=== PATIENT | female | born 1925 | race Hispanic/Latino ===

== ENCOUNTER 2016-02-24 12:48 | Outpatient (CLI) | payer MEDICARE ==
[2016-02-24 16:09] LABS: Anion Gap 14 mmol/L (10-20); BUN (Urea Nitrogen) 53 mg/dL (9.8-20.1); Calc. Creatinine Clearance 0 mL/min (70-130); Calcium 8.4 mg/dL (7.8-10.44); Carbon Dioxide 26 mmol/L (23-31); Chloride 103 mmol/L (98-107); Estimated GFR-MDRD 10
== END 2016-02-24 12:49 | disposition home or self-care (01) ==
LOC: NAVSJIPCSP 12:48
PROVIDERS: ATTEND Internal Medicine Nephrology
DX: N18.3 Chronic kidney disease, stage 3 (moderate) (principal)
CPT/HCPCS: 36415; 80048

== ENCOUNTER 2016-03-15 08:29 | Outpatient (CLI) | payer MEDICARE | END 2016-03-15 08:30 | LOC: NAVSJIPCSP 08:29 | PROVIDERS: ATTEND Internal Medicine | DX: R30.0 Dysuria (principal) | CPT/HCPCS: 87086 ==

== ENCOUNTER 2016-03-15 16:05 | Emergency (ER) | payer MEDICARE ==
[2016-03-15 16:41] LABS: Blood, Urine Large (Negative); Glucose, Urine (Dipstick) Negative (Negative); Ketone, Urine Trace mg/dL (Negative); Nitrite Negative (Negative); Protein, Urine (Dipstick) > or equal to 300 mg/dL (Neg-Trace); Urobilinogen 0.2 mg/dL (0.2-1.0)
[2016-03-15 16:43] LABS: Bilirubin Negative (Negative)
[2016-03-15 16:50] LABS: Bacteria/HPF None Seen HPF (None Seen); RBC/HPF GREATER THAN 50-TNTC HPF (0-3); Squamous Epithelial 0-3 HPF (0-3); WBC/HPF 0-3 HPF (0-3)
[2016-03-15 16:59] LABS: ALT (SGPT) 23 U/L (0-55); AST (SGOT) 47 U/L (5-34); Alkaline Phosphatase 66 U/L (40-150); Anion Gap 15 mmol/L (10-20); BUN (Urea Nitrogen) 16 mg/dL (9.8-20.1); Bilirubin, Total 0.7 mg/dL (0.2-1.2); Calc. Creatinine Clearance 0 mL/min (70-130); Calcium 8.4 mg/dL (7.8-10.44); Carbon Dioxide 28 mmol/L (23-31); Chloride 97 mmol/L (98-107); Estimated GFR-MDRD 14; Globulin 3.4 g/dL (2.4-3.5); Protein, Total 6.8 g/dL (5.8-8.1)
[2016-03-15] MEDS ORDERED: Lorazepam 2 MG/ML VIAL ONE (16:59)
[2016-03-15 17:33] LABS: #Eosinphils 0.1 thou/uL (0.0-0.7); #Lymphocytes 0.8 thou/uL (1.20-3.40); #Monocytes 0.8 thou/uL (0.11-0.59); #Neutrophils 6.7 thou/uL (1.40-6.50); %Basophils 0.4 % (0.0-1.0); %Eosinophils 0.9 % (0.0-10.0); %Lymphocytes 9.2 % (21.0-51.0); %Monocytes 9.5 % (0.0-10.0); Hematocrit 28.6 % (36.0-47.0); Hypochromia SLIGHT = 6-15 cells (100X) (0-5/hpf); Macrocytosis SLIGHT = 6-15 cells (100X) (0-5/hpf); Mean Platelet Volume 8.3 fL (7.4-10.4); Red Blood Cell (RBC) Count 2.87 mill/uL (4.20-5.40); White Blood Cell (WBC) Count 8.3 thou/uL (4.8-10.8)
--- NOTE | 2016-03-15 17:52 | CT ---
CT OF BRAIN PERFORMED WITHOUT CONTRAST ENHANCEMENT: HISTORY: Trembling, shaking, and weakness. History of an aneurysm in 2009. COMPARISON: 08/09/2013 study. FINDINGS: There is generalized ventricular and sulcal prominence with decreased attenuation of the periventric ular white matter consistent with some chronic ischemic white matter change. Once again, an aneurys m clip is seen along the right middle cranial fossa. This actually may represent embolic coil. It is stable as compared to the prior exam. IMPRESSION: 1. Atrophy and chronic white matter change. 2. Prominent artifact along the medial aspect of the right middle cranial fossa related to placement of an embolic coil presumably related to aneurysm. POS: LUIS FERNANDO
--- NOTE | 2016-03-15 18:34 | ERRECORD ---
[facility] EMERGENCY RECORD HPI GENERAL (17:09 KNGU) CHIEF COMPLAINT: Patient presents for evaluation of shaking trembling weak. HISTORIAN: History provided by patient, History provided by patient's family, 89 yo F ESRD recently started on HD / with shaking trembling symptoms yesterday / feel weak has no other symptoms. Patient had HD earlier today / said seems worse after HD / no current headache/ nausea vomiting / dizziness no chest pain no sob. MECHANISM OF INJURY: Unknown mechanism. LOCATION: Symptoms are generalized. QUALITY: Unable to describe the quality of the pain. SEVERITY: Maximum severity of symptoms mild, Currently there are no symptoms. TIME COURSE: Gradual onset of symptoms, are intermittent. ASSOCIATED WITH: No associated symptoms. EXACERBATED BY: Patient's condition exacerbated by nothing. RELIEVED BY: Nothing tried for relief. ROS (17:10 KNGU) CONSTITUTIONAL: Negative constitutional review of systems, Historian denies chills, denies fever. CARDIOVASCULAR: Negative cardiovascular review of systems, Historian denies chest pain, denies palpitations. RESPIRATORY: Negative respiratory review of systems, Historian denies cough, denies shortness of breath. GI: Negative gastrointestinal review of systems, Historian denies abdominal pain, denies constipation, denies diarrhea, denies nausea, denies vomiting. GENITOURINARY FEMALE: Negative genitourinary review of systems, Historian denies dysuria, denies frequency. SKIN: Negative skin review of systems, Historian denies rash, denies skin changes. NEUROLOGIC: Historian denies confusion, denies dizziness, denies focal weakness, denies headache, denies lethargy, denies mental status changes, denies paresthesias, denies sensory changes, denies speech changes, reports tremors, denies vertigo, denies headache. HEMO/LYMPHATIC: Normal hematologic/lymphatic system review, Historian denies abnormal blood clotting. PAST MEDICAL HISTORY (16:16 MSPE) MEDICAL HISTORY: Notes: Started Dialysis this month; T S, Past medical history includes cardiac history, congestive heart failure, myocardial infarction, arrhythmia, atrial fibrillation, Treated with a pacemaker, Treated with stent placement, Number of stents: 2, Past medical history includes neurological disease, aneurysm, Flu vaccine up to date, Tetanus immunization up to date, Pneumococcal vaccine up to date, Notes: prolapsed utreus, of &a-1R&a+25V*p+0X*g0126I*c202B*c15G*c2P*p-0X&a-25V&a+1R Name: Kayleigh Novak : 1925 F89 MedRec: [id number] AcctNum: [id number] Prepared: MonMar 15, 2016 18:53 by Interface Page 1 of 4 pMD [facility] EMERGENCY RECORD hyperlipidemia, high cholesterol, currently being treated, includes history of hypertension, which has been treated, renal disease, insufficiency. FEMALE SURGICAL HISTORY: AV fistula Left arm, CATARACT SX, coiling for the aneurysm. PSYCHIATRIC HISTORY: No previous psychiatric history. SOCIAL HISTORY: Patient denies alcohol use, Patient denies drug use, Patient has no smoking history. KNOWN ALLERGIES Odsiqih-Pmn-Daf Reductase Inhibitors Sulfa (Sulfonamide Antibiotics) CURRENT MEDICATIONS (16:13 MSPE) carvedilol: TABLET : Strength - 6.25 mg : ORAL Patient Dose: 2 tab(s) Oral 2 times a day. aspirin: TABLET : Strength - 81 mg : ORAL Patient Dose: 1 tab(s) Oral once a day (in the morning). Zetia: TABLET : Strength - 10 mg : ORAL Patient Dose: 10 mg Oral once a day. amiodarone: TABLET : Strength - 200 mg : ORAL Patient Dose: 1 tab(s) Oral once a day. Claritin: TABLET : Strength - 10 mg : ORAL Patient Dose: 1 tab(s) Oral once a day. VITAL SIGNS VITAL SIGNS: Pain: 0, Time: 03/15/2016 16:11. (16:11 MSPE) BP: 148/89, Pulse: 97, Resp: 20, Temp: 99.8 (Oral), O2 sat: 97 on Room Air, Time: 03/15/2016 16:13. (16:13 MSPE) BP: 119/66, Pulse: 62, Resp: 24, O2 sat: 96 on Room Air, Time: 03/15/2016 16:40. (16:40 MSPE) BP: 122/59, Pulse: 61, Resp: 18, Pain: 0, O2 sat: 96 on Room Air, Time: 03/15/2016 17:03. (17:03 MSPE) BP: 157/61, Pulse: 74, Resp: 17, Pain: 0, O2 sat: 97 on RA, Time: 03/15/2016 17:34. (17:34 MSPE) BP: 137/54, Pulse: 60, Resp: 17, Pain: 0, O2 sat: 95, Time: 03/15/2016 17:58. (17:58 JPAR) PHYSICAL EXAM CONSTITUTIONAL: Vital signs reviewed, Patient afebrile, Pulse normal, Blood pressure normal, Respiratory rate normal, Patient appears non toxic, Patient appears pain free, Patient alert and oriented to person, place and time. (17:10 KNGU) HEAD: Head exam normal. (17:11 KNGU) EYES: Eye exam normal. (17:11 KNGU) &a-1R&a+25V*p+0X*[id number]*c202B*c15G*c2P*p-0X&a-25V&a+1R Name: Kayleigh Novak : 1925 F89 MedRec: [id number] AcctNum: [id number] Prepared: Barbara Mar 15, 2016 18:53 by Interface Page 2 of 4 pMD [facility] EMERGENCY RECORD ENT: ENT exam normal. (17:11 KNGU) NECK: Neck exam normal, Neck exam included findings of normal range of motion, Trachea midline, no meningeal signs, no cervical adenopathy, no tenderness. (17:10 KNGU) RESPIRATORY CHEST: Respiratory and chest exam normal, Respiratory exam included findings of no respiratory distress, Breath sounds clear. (17:10 KNGU) CARDIOVASCULAR: Cardiovascular assessment normal, Cardiovascular exam included findings of heart rate regular rate and rhythm, Heart sounds normal. (17:10 KNGU) ABDOMEN FEMALE: Abdominal exam included findings of abdomen nontender, Bowel sounds normal, no distension, no mass, no pulsatile masses, no peritoneal signs, no rigidity, no guarding, no rebound, Rovsing's sign absent. (17:10 KNGU) BACK: Back exam normal, Back exam included findings of normal inspection, range of motion normal, no tenderness. (17:10 KNGU) NEURO: Neuro exam findings include patient oriented to person, place and time, Speech normal, Gait normal, no focal motor deficits, no focal sensory deficits, patient with slight trembling b/l arms / but stopped when distracting with question. (17:10 KNGU) SKIN: Skin exam normal, Skin exam included findings of skin warm, dry, and normal in color, no rash. (17:10 KNGU) MEDICATION ADMINISTRATION SUMMARY Drug Name: Ativan injection, Dose Ordered: 0.5 mg, Route: IV Push, Status: Given, Time: 17:06 03/15/2016, Detailed record available in Medication Service section. DOCTOR NOTES (17:02 KNGU) TEXT: 89 yo F ESRD recently started on HD / with shaking trembling symptoms yesterday / feel weak has no other symptoms labs and ct scan no acute abnormality seen patient symptoms resolved with Ativan 0.5 mg impression : anxiety vs muscle spasm post hd to follow up with pcp as needed. PROBLEM LIST No recorded problems DIAGNOSIS (17:52 KNGU) FINAL: PRIMARY: Anxiety, ADDITIONAL: muscle spasm. PRESCRIPTION (17:53 KNGU) Ativan oral: TABLET : 0.5 mg : ORAL : Quantity: 1 Unit: tab(s) Route: ORAL Schedule: every 8 hours PRN Dispense: 12 Unit: tab(s) May substitute. Refills: No Refills . &a-1R&a+25V*p+0X*i9120G*c202B*c15G*c2P*p-0X&a-25V&a+1R Name: Kayleigh Novak : 1925 89 MedRec: [id number] AcctNum: [id number] Prepared: Barbara Mar 15, 2016 18:53 by Interface Page 3 of 4 pMD [facility] EMERGENCY RECORD NOTES: No Refills. DISPOSITION PATIENT: Disposition Type: Discharge, Disposition: *Discharge Home. (17:52 KNGU) Patient left the department. (18:17 CHERYL) Mitchell: CHERYL=AFSANEH Jha, Kamran DODGE=MD Eileen, Joellen HART=AFSANEH Painter, Coco &a-1R&a+25V*p+0X*[id number]*c202B*c15G*c2P*p-0X&a-25V&a+1R Name: Kayleigh Novak : 1925 [facility] MedRec: [id number] AcctNum: [id number] Prepared: Barbara Mar 15, 2016 18:53 by Interface Page 4 of 4 pMD MTDD
--- NOTE | 2016-03-15 18:41 | PICIS ---
[facility] EMERGENCY RECORD TRIAGE (MonMar 15, 2016 16:12 MSPE) TRIAGE NOTES: sts trembling since yesterday; saw Dr Wilson yesterday for the same. Denies Pain. (MonMar 15, 2016 16:12 MSPE) PATIENT: NAME: Kayleigh Novak, AGE: 89, GENDER: female, : [facility] 1925, TIME OF GREET: MonMar 15, 2016 16:06, PREFERRED LANGUAGE: Australian, ETHNICITY: or , ECODE BILLING MAP: [facility] ER, SSN: [id number], Zip Code: [address], KG WEIGHT: 65.77, PHONE: , , , PERSON ID: [id number], PCP: Katie. (MonMar 15, 2016 16:12 MSPE) COMPLAINT: SHAKING/TREMBLING SINCE YESTERDAY,. (MonMar 15, 2016 16:12 MSPE) ADMISSION: URGENCY: 3 Urgent, ADMISSION SOURCE: Home, TRANSPORT: CAR, BED: ER -03. (MonMar 15, 2016 16:12 MSPE) PROVIDERS: TRIAGE NURSE: Coco Painter RN. (MonMar 15, 2016 16:12 MSPE) VITAL SIGNS: Pain 0, Time 03/15/2016 16:11. (16:11 MSPE) PREVIOUS VISIT ALLERGIES: Dctatrp-Crp-Yin Reductase Inhibitors, Sulfa (Sulfonamide Antibiotics). (MonMar 15, 2016 16:12 MSPE) Zvukemw-Jvi-Hjl Reductase Inhibitors, Sulfa (Sulfonamide Antibiotics). (16:16 MSPE) KNOWN ALLERGIES Dsupibu-Lhg-Dga Reductase Inhibitors Sulfa (Sulfonamide Antibiotics) CURRENT MEDICATIONS (16:13 MSPE) carvedilol: TABLET : Strength - 6.25 mg : ORAL Patient Dose: 2 tab(s) Oral 2 times a day. aspirin: TABLET : Strength - 81 mg : ORAL Patient Dose: 1 tab(s) Oral once a day (in the morning). Zetia: TABLET : Strength - 10 mg : ORAL Patient Dose: 10 mg Oral once a day. amiodarone: TABLET : Strength - 200 mg : ORAL Patient Dose: 1 tab(s) Oral once a day. Claritin: TABLET : Strength - 10 mg : ORAL Patient Dose: 1 tab(s) Oral once a day. VITAL SIGNS VITAL SIGNS: Pain: 0, Time: 03/15/2016 16:11. (16:11 MSPE) BP: 148/89, Pulse: 97, Resp: 20, Temp: 99.8 (Oral), O2 sat: 97 on Room Air, Time: 03/15/2016 16:13. (16:13 MSPE) BP: 119/66, Pulse: 62, Resp: 24, O2 sat: 96 on Room Air, Time: 03/15/2016 16:40. (16:40 MSPE) &a-1R&a+25V*p+0X*p2039X*c202B*c15G*c2P*p-0X&a-25V&a+1R Name: Kayleigh Novak : 1925 F89 MedRec: [id number] AcctNum: [id number] Prepared: Barbara Mar 15, 2016 18:54 by Interface Page 1 of 9 pMD [facility] EMERGENCY RECORD BP: 122/59, Pulse: 61, Resp: 18, Pain: 0, O2 sat: 96 on Room Air, Time: 03/15/2016 17:03. (17:03 MSPE) BP: 157/61, Pulse: 74, Resp: 17, Pain: 0, O2 sat: 97 on RA, Time: 03/15/2016 17:34. (17:34 MSPE) BP: 137/54, Pulse: 60, Resp: 17, Pain: 0, O2 sat: 95, Time: 03/15/2016 17:58. (17:58 JPAR) NURSING ASSESSMENT: HEAD-TO-TOE (16:21 MSPE) CONSTITUTIONAL: Patient arrives, via hospital wheelchair, Unsteady gait, Assistance to cart, History obtained from patient, Patient appears comfortable, Patient cooperative, Patient alert, Oriented to person, place and time, Skin warm, Skin dry. PAIN: Pt denies pain anywhere. SKIN: Inspection findings include ecchymosis, to scattered ecchymotic areas to arms and chest, Notes: New AV fistula site left forearm. Current dialysis access rt subclavian. NEURO: GCS:, Eye opening: (4) - Spontaneous, Verbal: (5) - Oriented/conversive, Motor: (6) - Obeys commands/Spontaneous, GCS Total: 15. RESPIRATORY/CHEST: Breath sounds clear, Respiratory assessment findings include respiratory effort easy, Respirations regular. GENITOURINARY FEMALE: Notes: sts still produces a small amt of urine; started dialysis this month. Dialyzed fully today. NOTES: Notes: Pt does have slight tremors at rest . Tremors become more obvious when attempts to change positions or stand. SAFETY: Side rails up, Cart/Stretcher in lowest position, Family at bedside, Call light within reach, Hospital ID band on. NURSING PROCEDURE: CIGARETTE EXAMINER (16:50 MSPE) CIGARETTE EXAMINER: Cardiac monitoring indicated for new dialysis pt; trembling, Patient placed on heel coverer machine operator, showing paced rhythm, Patient placed on non-invasive blood pressure monitor, with disposable blood pressure cuff applied, Patient placed on continuous pulse oximetry, Adult/pediatric oxisensor applied. NURSING PROCEDURE: DISCHARGE NOTE (18:12 JPAR) DISCHARGE: Patient discharged to home, in a wheelchair, family driving, accompanied by other family member, Summary of Care printed/ provided, Patient requested and was provided an electronic copy of Discharge Instructions, Transition record given to patient, Discharge instructions given to patient, Discharge instructions given to Grand Daughter Driving, Simple or moderate discharge teaching performed, Prescriptions given and instructions on side effects given, Name of prescription(s) given: Ativan, Medication reconciliation form given, Above person(s) verbalized understanding of discharge instructions and follow-up care, Patient treated and evaluated by physician. BELONGINGS: Belongings and valuables with patient at time of &a-1R&a+25V*p+0X*u4893B*c202B*c15G*c2P*p-0X&a-25V&a+1R Name: Kayleigh Novak : 1925 F89 MedRec: [id number] AcctNum: [id number] Prepared: Barbara Mar 15, 2016 18:54 by Interface Page 2 of 9 pMD [facility] EMERGENCY RECORD discharge include:, Belongings remain with patient, Valuables remain with patient. SAFETY: Side rails up, Cart/Stretcher in lowest position, Family at bedside, Call light within reach, Hospital ID band on. NURSING PROCEDURE: IV PATIENT IDENITIFIER: Patient actively involved in identification process, Patient's identity verified by patient stating name, Patient's identity verified by patient stating date, Patient's identity verified by hospital ID bracelet, Patient's identity verified by family member. (16:26 JPAR) IV SITE 1: IV therapy indicated for hydration, IV therapy indicated for medication administration, IV established, to the right wrist, using a 22 gauge catheter, in two attempts, IV site prepped with clorohexaphine, Saline lock established, Flushed with normal saline (mls): 10, Labs drawn at time of placement, labeled in the presence of the patient and sent to lab. (16:26 JPAR) FOLLOW-UP SITE 1: After procedure, 2x2 dressing applied, After procedure, no drainage at IV site, After procedure, no swelling at IV site, After procedure, no redness at IV site, IV discontinued, due to patient being discharged, catheter intact. (18:02 JPAR) SAFETY: Side rails up, Cart/Stretcher in lowest position, Family at bedside, Call light within reach, Hospital ID band on. (16:26 JPAR) NURSING PROCEDURE: NURSE NOTES (17:34 MSPE) NURSES NOTES: Patient is awaiting results, Patient is awaiting disposition, Notes: Sts doesn't feel as shakey. Remains awake and alert. Family member at bedside. VITAL SIGNS: BP: 157, / 61, Pulse: 74, Resp: 17, Pain: 0, O2 sat: 97, on: RA. NURSING PROCEDURE: TRANSPORT TO TESTS TRANSPORT TO TESTS: Patient transported to CT scan, via cart, Accompanied by x-ray customer service technician. (17:22 MSPE) Patient transported to CT scan, via cart, Accompanied by x-ray customer service technician, Patient arrived in location at 17:25, Patient departed location at 1735. (17:20 CCRI) FOLLOW-UP: After procedure, patient returned to emergency department. (17:31 MSPE) NURSING PROCEDURE: URINE COLLECTION (16:35 MSPE) URINE COLLECTION FEMALE: Urine collection indicated for trembling, Urine collected by straight cath, using an 8fr catheter kit, in one attempt, output amount (mL) 8, urine deisi in color, and cloudy, Specimen collected, labeled in the presence of the patient and sent to lab, Pt tolerated procedure well. ORDER DETAILS &a-1R&a+25V*p+0X*r2598E*c202B*c15G*c2P*p-0X&a-25V&a+1R Name: Kayleigh Novak : 1925 F89 MedRec: [id number] AcctNum: [id number] Prepared: MonMar 15, 2016 18:54 by Interface Page 3 of 9 D [facility] EMERGENCY RECORD Order Name: B type Natriuretic Peptide, Status: Canceled, Time: 17:06 03/15/2016, User: System, - Ordered for: MD Arellano Kim, - Entered by: MD Arellano Kim - Tue Mar 15, 2016 16:18, - Quantity: 1, Order Name: CIGARETTE EXAMINER ED, Status: Done, Time: 16:46 03/15/2016, User: TANNER, - Ordered for: MD Arellano Kim, - Entered by: AFSANEH Painter, Coco Jimenez Mar 15, 2016 16:46, - Quantity: 1, Order Name: CATH STRAIGHT ED, Status: Done, Time: 16:43 03/15/2016, User: TANNER, - Ordered for: MD Arellano Kim, - Entered by: AFSANEH Painter, Coco Jimenez Mar 15, 2016 16:26, - Quantity: 1, Order Name: CBC with Differential, Status: Active, Time: 16:17 03/15/2016, User: ECHO, - Ordered for: MD Arellano Kim, - Entered by: MD Arellano Kim - Tue Mar 15, 2016 16:17, - Quantity: 1, Order Name: Comprehensive Metabolic Panel, Status: Active, Time: 16:17 03/15/2016, User: ECHO, - Ordered for: MD Arellano Kim, - Entered by: MD Arellano Kim - Tue Mar 15, 2016 16:17, - Quantity: 1, Order Name: CT Brain WO Con, Status: Active, Time: 17:01 03/15/2016, User: ECHO, - Ordered for: MD Arellano Kim, - Entered by: MD Arellano Kim - twan Mar 15, 2016 17:01, - Quantity: 1, Order Name: ERRT Pulse Oximeter ER, Status: Active, Time: 16:46 03/15/2016, User: TANNER, - Ordered for: MD Arellano Kim, - Entered by: AFSANEH Painter Marilyn - MonMar 15, 2016 16:46, - Quantity: 1, Order Name: Urinalysis w/ Rflx Microscopic, Status: Active, Time: 16:17 03/15/2016, User: ECHO, - Ordered for: MD Arellano Kim, - Entered by: MD Arellano Kim - MonMar 15, 2016 16:17, - Quantity: 1. MEDICATION ADMINISTRATION SUMMARY Drug Name: Ativan injection, Dose Ordered: 0.5 mg, Route: IV Push, Status: Given, Time: 17:06 03/15/2016, Detailed record available in Medication Service section. MEDICATION SERVICE (17:06 ECHO) Ativan injection: Order: Ativan injection (lorazepam) - &a-1R&a+25V*p+0X*x5378B*c202B*c15G*c2P*p-0X&a-25V&a+1R Name: Kayleigh Novak : 1925 F89 MedRec: [id number] AcctNum: [id number] Prepared: MonMar 15, 2016 18:54 by Interface Page 4 of 9 pMD [facility] EMERGENCY RECORD Dose: 0.5 mg : IV Push Schedule: Now Ordered by: Joellen Arellano MD Entered by: Joellen Arellano MD MonMar 15, 2016 16:59 , Acknowledged by: Coco Painter RN MonMar 15, 2016 17:03 Documented as given by: Coco Painter RN MonMar 15, 2016 17:06 Patient, Medication, Dose, Route and Time verified prior to administration. Amount given: 0.5g, Amount wasted: 1.5mg, IV SITE #1 IVP, initial medication, Slowly, Awake and alert- acceptable, Connections checked prior to administration, Line traced prior to administration, Catheter placement confirmed via flush prior to administration, IV site without signs or symptoms of infiltration during medication administration, No swelling during administration, No drainage during administration, IV flushed after administration, Correct patient, time, route, dose and medication confirmed prior to administration, Patient advised of actions and side-effects prior to administration, Allergies confirmed and medications reviewed prior to administration, Patient in position of comfort, Side rails up, Cart in lowest position, Family at bedside. HPI GENERAL (17:09 KN) CHIEF COMPLAINT: Patient presents for evaluation of shaking trembling weak. HISTORIAN: History provided by patient, History provided by patient's family, 89 yo F ESRD recently started on HD / with shaking trembling symptoms yesterday / feel weak has no other symptoms. Patient had HD earlier today / said seems worse after HD / no current headache/ nausea vomiting / dizziness no chest pain no sob. MECHANISM OF INJURY: Unknown mechanism. LOCATION: Symptoms are generalized. QUALITY: Unable to describe the quality of the pain. SEVERITY: Maximum severity of symptoms mild, Currently there are no symptoms. TIME COURSE: Gradual onset of symptoms, are intermittent. ASSOCIATED WITH: No associated symptoms. EXACERBATED BY: Patient's condition exacerbated by nothing. RELIEVED BY: Nothing tried for relief. ROS (17:10 KNGU) CONSTITUTIONAL: Negative constitutional review of systems, Historian denies chills, denies fever. CARDIOVASCULAR: Negative cardiovascular review of systems, Historian denies chest pain, denies palpitations. RESPIRATORY: Negative respiratory review of systems, Historian denies cough, denies shortness of breath. GI: Negative gastrointestinal review of systems, Historian denies abdominal pain, denies constipation, denies diarrhea, denies nausea, &a-1R&a+25V*p+0X*q4053A*c202B*c15G*c2P*p-0X&a-25V&a+1R Name: Kayleigh Novak : 1925 F89 MedRec: [id number] AcctNum: [id number] Prepared: Barbara Mar 15, 2016 18:54 by Interface Page 5 of 9 pMD [facility] EMERGENCY RECORD denies vomiting. GENITOURINARY FEMALE: Negative genitourinary review of systems, Historian denies dysuria, denies frequency. SKIN: Negative skin review of systems, Historian denies rash, denies skin changes. NEUROLOGIC: Historian denies confusion, denies dizziness, denies focal weakness, denies headache, denies lethargy, denies mental status changes, denies paresthesias, denies sensory changes, denies speech changes, reports tremors, denies vertigo, denies headache. HEMO/LYMPHATIC: Normal hematologic/lymphatic system review, Historian denies abnormal blood clotting. PAST MEDICAL HISTORY (16:16 MSPE) MEDICAL HISTORY: Notes: Started Dialysis this month; T S, Past medical history includes cardiac history, congestive heart failure, myocardial infarction, arrhythmia, atrial fibrillation, Treated with a pacemaker, Treated with stent placement, Number of stents: 2, Past medical history includes neurological disease, aneurysm, Flu vaccine up to date, Tetanus immunization up to date, Pneumococcal vaccine up to date, Notes: prolapsed utreus, of hyperlipidemia, high cholesterol, currently being treated, includes history of hypertension, which has been treated, renal disease, insufficiency. FEMALE SURGICAL HISTORY: AV fistula Left arm, CATARACT SX, coiling for the aneurysm. PSYCHIATRIC HISTORY: No previous psychiatric history. SOCIAL HISTORY: Patient denies alcohol use, Patient denies drug use, Patient has no smoking history. PHYSICAL EXAM CONSTITUTIONAL: Vital signs reviewed, Patient afebrile, Pulse normal, Blood pressure normal, Respiratory rate normal, Patient appears non toxic, Patient appears pain free, Patient alert and oriented to person, place and time. (17:10 KNGU) HEAD: Head exam normal. (17:11 KNGU) EYES: Eye exam normal. (17:11 KNGU) ENT: ENT exam normal. (17:11 KNGU) NECK: Neck exam normal, Neck exam included findings of normal range of motion, Trachea midline, no meningeal signs, no cervical adenopathy, no tenderness. (17:10 KNGU) RESPIRATORY CHEST: Respiratory and chest exam normal, Respiratory exam included findings of no respiratory distress, Breath sounds clear. (17:10 KNGU) CARDIOVASCULAR: Cardiovascular assessment normal, Cardiovascular exam included findings of heart rate regular rate and rhythm, Heart sounds normal. (17:10 KNGU) ABDOMEN FEMALE: Abdominal exam included findings of abdomen nontender, Bowel sounds normal, no distension, no mass, no pulsatile masses, no peritoneal signs, no rigidity, no guarding, no rebound, &a-1R&a+25V*p+0X*z8630N*c202B*c15G*c2P*p-0X&a-25V&a+1R Name: Kayleigh Novak : 1925 F89 MedRec: [id number] AcctNum: [id number] Prepared: MonMar 15, 2016 18:54 by Interface Page 6 of 9 pMD [facility] EMERGENCY RECORD Rovsing's sign absent. (17:10 KNGU) BACK: Back exam normal, Back exam included findings of normal inspection, range of motion normal, no tenderness. (17:10 KNGU) NEURO: Neuro exam findings include patient oriented to person, place and time, Speech normal, Gait normal, no focal motor deficits, no focal sensory deficits, patient with slight trembling b/l arms / but stopped when distracting with question. (17:10 KNGU) SKIN: Skin exam normal, Skin exam included findings of skin warm, dry, and normal in color, no rash. (17:10 KNGU) EVENTS TRANSFER: Triage to Emergency Emergency Room -03. (MonMar 15, 2016 16:12 MSPE) Removed from Emergency Emergency Room -03. (18:17 JPAR) DOCTOR NOTES (17:02 KNGU) TEXT: 89 yo F ESRD recently started on HD / with shaking trembling symptoms yesterday / feel weak has no other symptoms labs and ct scan no acute abnormality seen patient symptoms resolved with Ativan 0.5 mg impression : anxiety vs muscle spasm post hd to follow up with pcp as needed. PROBLEM LIST No recorded problems DIAGNOSIS (17:52 KNGU) FINAL: PRIMARY: Anxiety, ADDITIONAL: muscle spasm. DISPOSITION PATIENT: Disposition Type: Discharge, Disposition: *Discharge Home. (17:52 KNGU) Patient left the department. (18:17 JPAR) INSTRUCTION (17:53 KNGU) DISCHARGE: ANXIETY REACTION, MUSCLE SPASM. SPECIAL: can use Ativan 0.25 mg to 0.5 mg as needed Follow-up with your primary physician as needed. PRESCRIPTION (17:53 KNGU) Ativan oral: TABLET : 0.5 mg : ORAL : Quantity: 1 Unit: tab(s) Route: ORAL Schedule: every 8 hours PRN Dispense: 12 Unit: tab(s) May substitute. Refills: No Refills . NOTES: No Refills. IMAGING (18:16 MSPE) *SUPPLY CHARGE SHEET: Image captured from scanner. &a-1R&a+25V*p+0X*w6566Q*c202B*c15G*c2P*p-0X&a-25V&a+1R Name: Kayleigh Novak : 1925 F89 MedRec: [id number] AcctNum: [id number] Prepared: MonMar 15, 2016 18:54 by Interface Page 7 of 9 pMD [facility] EMERGENCY RECORD *DISCHARGE INSTRUCTIONS RECEIPT: Image captured from scanner. ADMIN (18:51 KNGU) DIGITAL SIGNATURE: MD Arellano Kim. RESULTS (17:03 KNGU) LABORATORY: Comprehensive Metabolic Panel Collection DT: MonMar 15, 2016 16:39, Sodium 136 mmol/L, Range (136-145), Potassium 4.2 mmol/L, Range (3.5-5.1), *Chloride 97 - L mmol/L, Range (98-107), Carbon Dioxide 28 mmol/L, Range (23-31), Anion Gap 15 mmol/L, Range (10-20), BUN (Urea Nitrogen) 16 mg/dL, Range (9.8-20.1), *Creatinine 3.13 - H mg/dL, Range (0.6-1.1), Estimated GFR-MDRD 14 , Reference Range for Estimated GFR: Greater than 90, mL/min/1.73 m2 NOTE: The MDRD equation has not been validated for use, with the elderly (over 70 years of age), women, patients with, serious comorbid condition or persons with extremes of body size, muscle, mass, or nutritional status. , *Glucose 117 - H mg/dL, Range (83-110), Calcium 8.4 mg/dL, Range (7.8-10.44), Bilirubin, Total 0.7 mg/dL, Range (0.2-1.2), Protein, Total 6.8 g/dL, Range (5.8-8.1), NOTE: Plasma values are generally 0.3 to 0.5 g/dL higher than serum values, due to the presence of fibrinogen. , Albumin 3.4 g/dL, Range (3.4-4.8), Globulin 3.4 g/dL, Range (2.4-3.5), *Alb/Glob Ratio 1.0 - L g/dL, Range (1.2-2.2), Alkaline Phosphatase 66 U/L, Range (40-150), *AST (SGOT) 47 - H U/L, Range (5-34), ALT (SGPT) 23 U/L, Range (0-55). Urine Microscopic Collection DT: MonMar 15, 2016 16:39, *RBC/HPF GREATER THAN 50-TNTC HPF, * - H , Range (0-3), WBC/HPF 0-3 HPF, Range (0-3), Squamous Epithelial 0-3 HPF, Range (0-3), Bacteria/HPF None Seen HPF, Range (None Seen). Urinalysis w/ Rflx Microscopic Collection DT: MonMar 15, 2016 16:39, Color Yellow , Range (Yellow), Clarity Slightly Cloudy , Range (Clear), Specific [place], Urine 1.020 , Range (1.005-1.030), pH, Urine 7.5 , Range (5.0-9.0), Leukocyte Negative , Range (Negative), Nitrite Negative , Range (Negative), *Protein, Urine (Dipstick) > or equal to 300 - mg/dL, * H , Range (Neg-Trace), &a-1R&a+25V*p+0X*w5764J*c202B*c15G*c2P*p-0X&a-25V&a+1R Name: Kayleigh Novak : 1925 F89 MedRec: [id number] AcctNum: [id number] Prepared: MonMar 15, 2016 18:54 by Interface Page 8 of 9 pMD [facility] EMERGENCY RECORD Glucose, Urine (Dipstick) Negative mg/dL, Range (Negative), *Ketone, Urine Trace - H mg/dL, Range (Negative), Urobilinogen 0.2 mg/dL, Range (0.2-1.0), Bilirubin Negative , Range (Negative), , *Blood, Urine Large - H , Range (Negative). Mitchell: CCRI=Casa, RAD, Abdiel JPAR=AFSANEH Jha, Kamran DODGE=MD Eileen, Joellen MSPE=AFSANEH Painter, Cooc &a-1R&a+25V*p+0X*j2441Q*c202B*c15G*c2P*p-0X&a-25V&a+1R Name: Dusty Novakolivia Trejo : 1925 F89 MedRec: [id number] AcctNum: [id number] Prepared: Barbara Mar 15, 2016 18:54 by Interface Page 9 of 9 pMD MTDD
== END 2016-03-15 18:12 | disposition home or self-care (01) ==
LOC: NAV ERS 16:05
DX: F41.9 Anxiety disorder, unspecified (principal); M62.838 Other muscle spasm; I11.0 Hypertensive heart disease with heart failure; I50.9 Heart failure, unspecified; I25.2 Old myocardial infarction; I48.91 Unspecified atrial fibrillation; E78.00 Pure hypercholesterolemia, unspecified; E78.5 Hyperlipidemia, unspecified; Z79.82 Long term (current) use of aspirin; Z79.899 Other long term (current) drug therapy; Z95.0 Presence of cardiac pacemaker
CPT/HCPCS: 51701; 70450; 80053; 81003; 81015; 83880; 85025; 87077; 87086; 94760; 96374; A4353; J2060

== ENCOUNTER 2016-05-03 09:55 | Outpatient (CLI) | payer MEDICARE ==
[2016-05-03 13:33] LABS: Cardiac Risk 3.1 (Less than 4.5)
[2016-05-03 15:16] LABS: Blood, Urine Large (Negative); Clarity Cloudy (Clear); Glucose, Urine (Dipstick) Negative (Negative); Leukocyte Moderate (Negative); Nitrite Negative (Negative); Protein, Urine (Dipstick) > or equal to 300 mg/dL (Neg-Trace); Urobilinogen 0.2 mg/dL (0.2-1.0)
[2016-05-03 15:33] LABS: Bacteria/HPF 3+ HPF (None Seen); Bilirubin Negative (Negative); Renal Epithelial 0-3 HPF (0-3); WBC/HPF 21-50 HPF (0-3)
== END 2016-05-03 09:56 | disposition home or self-care (01) ==
LOC: NAVSJIPCSP 09:55
PROVIDERS: ATTEND Internal Medicine
DX: E78.5 Hyperlipidemia, unspecified (principal); Z79.899 Other long term (current) drug therapy
CPT/HCPCS: 36415; 80061; 81003; 81015; 87086

== ENCOUNTER 2016-05-07 19:24 | Emergency (ER) | payer MEDICARE ==
[2016-05-07 20:23] LABS: #Basophils 0.1 thou/uL (0.0-0.2); #Eosinphils 0.1 thou/uL (0.0-0.7); #Lymphocytes 0.9 thou/uL (1.20-3.40); #Monocytes 0.4 thou/uL (0.11-0.59); #Neutrophils 6.6 thou/uL (1.40-6.50); %Basophils 0.9 % (0.0-1.0); %Eosinophils 1.1 % (0.0-10.0); %Lymphocytes 11.4 % (21.0-51.0); %Monocytes 5.4 % (0.0-10.0); %Neutrophils 81.3 % (42.0-75.0); Band 2 % (5-11); Eosinophils 1 % (0-10); Hemoglobin 8.3 g/dL (12.0-16.0); Hypochromia SLIGHT = 6-15 cells (100X) (0-5/hpf); Lymphocytes 12 % (21-51); MDiff Complete? YES; Macrocytosis SLIGHT = 6-15 cells (100X) (0-5/hpf); Mean Corpuscular HGB CONC 31.6 g/dL (32.0-36.0); Mean Corpuscular Hemoglobin 33.2 pg (27.0-31.0); Monocytes 6 % (0-10); Neutrophil 79 % (42-75); PLT Morphology Comment Appears Decreased; Platelet Count 57 thou/uL (130-400); White Blood Cell (WBC) Count 8.1 thou/uL (4.8-10.8)
[2016-05-07 20:26] LABS: ALT (SGPT) 30 U/L (0-55); AST (SGOT) 65 U/L (5-34); Alkaline Phosphatase 60 U/L (40-150); Anion Gap 15 mmol/L (10-20); BUN (Urea Nitrogen) 38 mg/dL (9.8-20.1); Bilirubin, Total 0.5 mg/dL (0.2-1.2); Calc. Creatinine Clearance 0 mL/min (70-130); Calcium 8.2 mg/dL (7.8-10.44); Carbon Dioxide 26 mmol/L (23-31); Chloride 99 mmol/L (98-107); Estimated GFR-MDRD 8; Globulin 2.8 g/dL (2.4-3.5); Glucose 101 mg/dL (83-110); Potassium 4.2 mmol/L (3.5-5.1); Protein, Total 5.8 g/dL (5.8-8.1); Sodium 136 mmol/L (136-145)
--- NOTE | 2016-05-07 20:30 | CT ---
CT LUMBAR SPINE NONCONTRAST 05/07/16 HISTORY: Fall. Back injury. FINDINGS: Comminuted burst fracture of L3 is present with minimal loss of height and minimal retropulsion. Oth er vertebral body height and alignment are maintained. Osteophytosis is present throughout the verte bral bodies and facets. Calcifications present within the arterial structures. Metallic filter is ap parent within the inferior vena cava. IMPRESSION: 1. Minimal loss of height and minimal retropulsion associated with the L3 burst fracture. 2. Lumbar spondylosis. The findings were called to Dr. Moeller in the Emergency Department at [place] at 202 hours. Code CR POS: [facility]
[2016-05-07] MEDS ORDERED: Diazepam 10 MG/2 ML SYRINGE ONE (22:04)
== END 2016-05-07 23:19 | disposition home or self-care (01) ==
LOC: NAV ERS 19:24
DX: S32.031A Stable burst fracture of third lumbar vertebra, initial encounter for closed fracture (principal); I48.91 Unspecified atrial fibrillation; I13.0 Hypertensive heart and chronic kidney disease with heart failure and stage 1 through stage 4 chronic kidney disease, or unspecified chronic kidney disease; N18.9 Chronic kidney disease, unspecified; I50.9 Heart failure, unspecified; E78.5 Hyperlipidemia, unspecified; I25.2 Old myocardial infarction; W18.30XA Fall on same level, unspecified, initial encounter
CPT/HCPCS: 72131; 80053; 85025; 96374; 96375; 96376; J2270; J3360

== ENCOUNTER 2016-05-16 19:30 | Inpatient (IN) | payer MEDICARE ==
[2016-05-16] MEDS ORDERED: HYDROcodone/Acetaminophen 7.5/325 mg Tablet PO PRN (20:43)
[2016-05-16] MEDS ORDERED: tiZANidine HCl 4 MG TAB PO PRN (20:43)
[2016-05-16] MEDS ORDERED: Ondansetron ODT 4 MG TAB PO PRN (20:52)
[2016-05-16] MEDS ORDERED: Lorazepam 1 MG TAB ONE (21:21)
[2016-05-16] MEDS: Carvedilol 6.25 MG TAB PO SCH (21:25)
[2016-05-16] MEDS: Docusate 100 MG CAP PO SCH (21:25)
[2016-05-16] MEDS: Lorazepam 0.5 MG TAB PO PRN (21:26)
[2016-05-17 05:15] LABS: #Basophils 0.1 thou/uL (0.0-0.2); #Eosinphils 0.1 thou/uL (0.0-0.7); #Lymphocytes 1.3 thou/uL (1.20-3.40); #Monocytes 0.7 thou/uL (0.11-0.59); %Basophils 0.7 % (0.0-1.0); %Eosinophils 1.5 % (0.0-10.0); %Lymphocytes 18.5 % (21.0-51.0); %Monocytes 9.4 % (0.0-10.0); %Neutrophils 69.9 % (42.0-75.0); Hemoglobin 9.1 g/dL (12.0-16.0); Mean Corpuscular Hemoglobin 31.7 pg (27.0-31.0); Mean Corpuscular Volume 99.1 fl (81.0-99.0); Mean Platelet Volume 14.5 fL (7.4-10.4); PLT Morphology Comment Appears Decreased; Platelet Count 39 thou/uL (130-400); RBC Morphology Normal; Red Blood Cell (RBC) Count 2.88 mill/uL (4.20-5.40); White Blood Cell (WBC) Count 7.1 thou/uL (4.8-10.8)
[2016-05-17 05:21] LABS: MDiff Complete? YES; Manual Diff?? NO
[2016-05-17 05:38] LABS: Anion Gap 15 mmol/L (10-20); BUN (Urea Nitrogen) 25 mg/dL (9.8-20.1); Calc. Creatinine Clearance 10 mL/min (70-130); Calcium 7.8 mg/dL (7.8-10.44); Carbon Dioxide 26 mmol/L (23-31); Chloride 97 mmol/L (98-107); Estimated GFR-MDRD 10; Glucose 84 mg/dL (83-110); Potassium 3.9 mmol/L (3.5-5.1); Sodium 134 mmol/L (136-145)
[2016-05-17] MEDS ORDERED: Fish Oil 1,000 MG CAP PO SCH (09:00)
[2016-05-17] MEDS: Cefuroxime Axetil 250 MG TAB PO SCH (09:45)
[2016-05-17] MEDS: Carvedilol 6.25 MG TAB PO SCH ×2 (09:45→20:34)
[2016-05-17] MEDS: Docusate 100 MG CAP PO SCH ×2 (09:45→20:34)
[2016-05-17] MEDS: Multivitamin W/ Minerals 1 TAB PO SCH (09:45)
[2016-05-17] MEDS: Ezetimibe 10 MG TAB PO SCH (09:46)
[2016-05-17] MEDS: Calcium Carbonate + Vit D 1 TAB PO SCH (09:46)
[2016-05-17] MEDS: PATIENT'S HOME MEDICATION PO SCH (09:50)
[2016-05-17] MEDS ORDERED: Bisacodyl 10 MG SUPP PR PRN (17:32)
--- NOTE | 2016-05-17 18:06 | HP ---
CHIEF COMPLAINT: L3 compression fracture and deconditioning for physical therapy. BRIEF HISTORY: This is a very pleasant 89-year-old female who was admitted to [facility] with intractable low back pain and was diagnosed with lumbar spine compression fracture at L 3. She was placed on a brace and was continued on her hemodialysis. Neurosurgery evaluated the pat ient and recommended strict wearing of TLSO brace and consult PT. They do not recommend any surgica l intervention for the worsening of this fracture. She currently states that she is not in any pain . She denies any fever or chills. She denies any chest pain or shortness of breath. She is wearin g the brace. PAST MEDICAL HISTORY: 1. Chronic kidney disease stage 5, on hemodialysis. 2. Paroxysmal atrial fibrillation. 3. Hypertension. 4. Chronic diastolic congestive heart failure. 5. Coronary artery disease with history of myocardial infarction. 6. Dyslipidemia. 7. Permanent pacemaker placement. PAST SURGICAL HISTORY: 1. AV fistula placement in the left arm. 2. Permanent pacemaker placement. 3. Coronary artery stent placement. 4. Coiling for brain aneurysm. 5. IVC filter placement. 6. Cataract surgery. ALLERGIES: LIPITOR and SULFA. FAMILY HISTORY: Noncontributory to current admission. PSYCHOSOCIAL HISTORY: She lives at home. She quit smoking 30 years ago. No tobacco, alcohol or IV drug abuse. MEDICATIONS: She has been transferred here on the following medications: 1. Amiodarone 200 mg daily. 2. Aspirin 81 mg daily. 3. Carvedilol 12.5 mg b.i.d. 4. Ceftin 250 daily. 5. Colace 100 mg b.i.d. 6. Zetia 10 mg daily. 7. Nephro-Cade 1 tablet daily. 8. Humble 7.5/325 q.4 hours p.r.n. 9. Ativan 0.25 b.i.d. p.r.n. 10. Multivitamin 1 tablet daily. 11. Zanaflex 4 mg b.i.d. for 7 days. REVIEW OF SYSTEMS: CARDIOVASCULAR SYSTEM: Denies any chest pain, shortness of breath, palpitations, paroxysmal nocturn al dyspnea, orthopnea or pedal edema. RESPIRATORY SYSTEM: Denies any chronic cough, expectoration or pleuritic type chest pain. GASTROINTESTINAL SYSTEM: Denies any nausea, vomiting, diarrhea, constipation, hematemesis, melena o r hematochezia. GENITOURINARY SYSTEM: Denies any frequency, urgency, dysuria or hematuria. CENTRAL NERVOUS SYSTEM: No focal numbness, weakness or fainting spells. PHYSICAL EXAMINATION: GENERAL: A very pleasant 89-year-old female resting comfortably in no acute distress. She is alert, awake and oriented x3. VITAL SIGNS: She is afebrile, heart rate is 60, respirations are 18, oxygen saturation is 99% on 2 liters of oxygen and blood pressure is 131/62. HEENT: Normocephalic and atraumatic. Pupils are equally reacting to light and accommodation. NECK: No JVD, thyromegaly, cervical adenopathy, throat exudates or carotid bruits. CARDIOVASCULAR SYSTEM: S1 and S2+. RESPIRATORY SYSTEM: Normal vesicular breath sounds. ABDOMEN: Soft and nontender. Bowel sounds are heard in all quadrants. EXTREMITIES: Without cyanosis or clubbing. Trace edema. Peripheral pulses are palpable, but decre ased. CENTRAL NERVOUS SYSTEM: Generalized weakness. LABORATORY VALUES: White count is 7.1, H\T\H is 9.1 and 28.5. Sodium 134, potassium 3.9, BUN and c reatinine is 25 and 4.03. IMPRESSION: 1. L3 compression fracture, worsening. 2. Deconditioning. 3. Chronic kidney disease stage 5, on hemodialysis. 4. Coronary artery disease. 5. Dyslipidemia. 6. History of tobacco abuse. 7. Paroxysmal atrial fibrillation. PLAN: 1. Continue current medications. 2. Nutritional support. 3. Monitor heart rate. 4. DVT and stress ulcer prophylaxis. 5. Decubitus precautions. 6. Routine laboratory values. 7. TLSO brace at all times. 8. Physical therapy. 9. Titrate oxygen. 10. Heart healthy diet. 11. No family at the bedside. 12. Estimated length of stay 7-10 days. She will be transported for hemodialysis 3 times a week.
[2016-05-17] MEDS ORDERED: Lorazepam 1 MG TAB ONE (20:31)
[2016-05-17] MEDS: Lorazepam 0.5 MG TAB PO PRN (20:36)
[2016-05-18] MEDS: Calcium Carbonate + Vit D 1 TAB PO SCH (09:08)
[2016-05-18] MEDS: Carvedilol 6.25 MG TAB PO SCH ×2 (09:08→20:45)
[2016-05-18] MEDS: Docusate 100 MG CAP PO SCH ×2 (09:09→20:45)
[2016-05-18] MEDS: Cefuroxime Axetil 250 MG TAB PO SCH (09:09)
[2016-05-18] MEDS: Multivitamin W/ Minerals 1 TAB PO SCH (09:09)
[2016-05-18] MEDS: Ezetimibe 10 MG TAB PO SCH (09:09)
[2016-05-18] MEDS: PATIENT'S HOME MEDICATION PO SCH (09:10)
--- NOTE | 2016-05-18 10:03 | PRG ---
DATE OF SERVICE: 05/18/2016 SUBJECTIVE: Ms. Novak is sitting up in her chair. She has her brace on. She denies any pain. She is tolerating her diet and therapy. She is due for dialysis today. PHYSICAL EXAMINATION: VITAL SIGNS: Blood pressure was 178/70, and I advised them to go ahead and give her blood pressure medicine this morning. CARDIOVASCULAR: S1, S2 plus. RESPIRATORY: Normal vesicular breath sounds. ABDOMEN: Soft, nontender, bowel sounds heard in all quadrants. EXTREMITIES: Without cyanosis or clubbing. Trace edema left upper extremity, that is where she has the fistula. She says that they have been unable to access it so they are doing it with a temporar y hemodialysis catheter in her right chest wall. IMPRESSION: 1. Chronic kidney disease stage 5, on hemodialysis. 2. Paroxysmal atrial fibrillation. 3. Hypertension. 4. Chronic diastolic congestive failure. 5. Coronary artery disease. 6. Dyslipidemia. 7. L3 compression fracture. PLAN: 1. Continue brace. 2. Hemodialysis. 3. Physical therapy. 4. Nutritional support. 5. Heart healthy diet. 6. Monitor blood pressure. 7. Routine laboratory values. 8. Deep venous thrombosis and stress ulcer prophylaxis.
[2016-05-18] MEDS ORDERED: Lorazepam 1 MG TAB ONE (20:36)
[2016-05-18] MEDS: Lorazepam 0.5 MG TAB PO PRN (20:48)
[2016-05-19] MEDS: Cefuroxime Axetil 250 MG TAB PO SCH (08:34)
[2016-05-19] MEDS: Multivitamin W/ Minerals 1 TAB PO SCH (08:34)
[2016-05-19] MEDS: Carvedilol 6.25 MG TAB PO SCH ×2 (08:34→20:32)
[2016-05-19] MEDS: Docusate 100 MG CAP PO SCH ×2 (08:34→20:32)
[2016-05-19] MEDS: Calcium Carbonate + Vit D 1 TAB PO SCH (08:34)
[2016-05-19] MEDS: Ezetimibe 10 MG TAB PO SCH (08:34)
[2016-05-19] MEDS: PATIENT'S HOME MEDICATION PO SCH (08:34)
--- NOTE | 2016-05-19 13:10 | PRG ---
DATE OF SERVICE: 05/19/2016 SUBJECTIVE: Ms. Novak is doing well. Denies any complaints. She is ambulating in the hallways. He r swelling is much improved with her undergoing 3-1/2 hours of dialysis yesterday. She denies any p ain. Discussed with nursing and no concerns. OBJECTIVE: VITAL SIGNS: She is afebrile, heart rate is 60, respirations are 18, oxygen saturation 95%, blood p ressure 143/67. CARDIOVASCULAR: S1, S2 plus. RESPIRATORY: Normal vesicular breath sounds. ABDOMEN: Soft, nontender, bowel sounds heard in all quadrants. EXTREMITIES: Without cyanosis or clubbing. IMPRESSION: 1. Compression fracture of L3, wearing her TLSO brace at all times. 2. 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 3. Paroxysmal atrial fibrillation. 4. Hypertension, well controlled. 5. Chronic diastolic congestive heart failure, well compensated. 6. Coronary artery disease without angina. 7. Dyslipidemia. PLAN: 1. Continue TLSO brace at all times. 2. Heart healthy diet. 3. DVT and stress ulcer prophylaxis. 4. Decubitus precautions. 5. Physical therapy. 6. Routine laboratory values.
[2016-05-19 13:37] VITALS: BMI 26.6
[2016-05-20] MEDS: Calcium Carbonate + Vit D 1 TAB PO SCH (08:39)
[2016-05-20] MEDS: Carvedilol 6.25 MG TAB PO SCH ×2 (08:39→20:53)
[2016-05-20] MEDS: Cefuroxime Axetil 250 MG TAB PO SCH (08:40)
[2016-05-20] MEDS: Multivitamin W/ Minerals 1 TAB PO SCH (08:40)
[2016-05-20] MEDS: Ezetimibe 10 MG TAB PO SCH (08:40)
[2016-05-20] MEDS: Docusate 100 MG CAP PO SCH ×2 (08:40→20:52)
[2016-05-20] MEDS: PATIENT'S HOME MEDICATION PO SCH (08:44)
[2016-05-21] MEDS: Ezetimibe 10 MG TAB PO SCH (08:17)
[2016-05-21] MEDS: Multivitamin W/ Minerals 1 TAB PO SCH (08:17)
[2016-05-21] MEDS: Docusate 100 MG CAP PO SCH ×2 (08:17→20:47)
[2016-05-21] MEDS: Cefuroxime Axetil 250 MG TAB PO SCH (08:18)
[2016-05-21] MEDS: Calcium Carbonate + Vit D 1 TAB PO SCH (08:18)
[2016-05-21] MEDS: Carvedilol 6.25 MG TAB PO SCH ×2 (08:18→20:47)
--- NOTE | 2016-05-21 13:19 | PRG ---
DATE OF SERVICE: 05/21/2016 SUBJECTIVE: Patient of Dr. Fred Johnson who is admitted to longterm facility unit physical therapy and occupational therapy after compression fracture of L3 requiring TLSO brace. Quintin trent has done well and states she has no pain at this time. She is having no swelling or shortness of breath after undergoing dialysis. She does have a history of end-stage renal disease on dialysis 3 times weekly. She has had a history also paroxysmal atrial fibrillation, hypertension, congestive h eart failure, and coronary disease, but this time is having no chest pain, shortness of breath or pa lpitations. OBJECTIVE: Shows lungs to be clear. Cardiac examination showed regular rhythm. Abdomen is soft an d nontender. Skin and extremities showed no edema, clubbing, cyanosis. No tenderness to palpation of her lumbar spine and she is sitting in a chair without the brace. Objective shows blood pressure 126/63, temperature 98, pulse 68, respirations 18, O2 sats 97%. ASSESSMENT: 1. Resolving compression fracture of L3. 2. Chronic kidney disease, stage V with hemodialysis, stable. 3. Hypertension, controlled to goal. 4. Compensated diastolic congestive heart failure, chronic. 5. Asymptomatic coronary disease. PLAN: Continue physical therapy, occupational therapy. Continue to stress to nurses need to wear a brace at all times, continue DVT and stress ulcer prophylaxis. Continue to monitor for decompensat ed congestive heart failure, coronary artery disease.
[2016-05-21] MEDS: PATIENT'S HOME MEDICATION PO SCH (19:00)
[2016-05-22] MEDS: Cefuroxime Axetil 250 MG TAB PO SCH (08:47)
[2016-05-22] MEDS: Calcium Carbonate + Vit D 1 TAB PO SCH (08:47)
[2016-05-22] MEDS: Docusate 100 MG CAP PO SCH ×2 (08:47→21:38)
[2016-05-22] MEDS: Multivitamin W/ Minerals 1 TAB PO SCH (08:48)
[2016-05-22] MEDS: Carvedilol 6.25 MG TAB PO SCH ×2 (08:48→21:38)
[2016-05-22] MEDS: PATIENT'S HOME MEDICATION PO SCH (08:48)
[2016-05-22] MEDS: Ezetimibe 10 MG TAB PO SCH (08:48)
--- NOTE | 2016-05-22 23:27 | PRG ---
DATE OF SERVICE: 05/22/2016 SUBJECTIVE: Patient feels well with no complaints, rested today and is ready for more therapy mai ariza. Feels like she is getting stronger. OBJECTIVE: VITAL SIGNS: Shows temperature is 98, pulse 60, respirations 20, O2 sats 97%, blood pressure 176/71 . LUNGS: Clear. CARDIAC: Examination showed regular rhythm. ABDOMEN: Soft and nontender. BACK: Shows some minimal tenderness to palpation. ASSESSMENT: Resolving compression fracture of L3; stable stage 5 chronic kidney disease, on hemodia lysis; hypertension, controlled to goal; compensated diastolic congestive heart failure; and asympto matic coronary disease. PLAN: Continue PT and OT. Continue to stress to nurses need to wear a brace at all times. Continu e DVT and stress ulcer prophylaxis.
[2016-05-23] MEDS: Carvedilol 6.25 MG TAB PO SCH ×2 (09:09→20:04)
[2016-05-23] MEDS: Calcium Carbonate + Vit D 1 TAB PO SCH (09:09)
[2016-05-23] MEDS: Docusate 100 MG CAP PO SCH ×2 (09:09→20:04)
[2016-05-23] MEDS: Ezetimibe 10 MG TAB PO SCH (09:10)
[2016-05-23] MEDS: Multivitamin W/ Minerals 1 TAB PO SCH (09:10)
[2016-05-23] MEDS: PATIENT'S HOME MEDICATION PO SCH (09:10)
[2016-05-23] MEDS: Cefuroxime Axetil 250 MG TAB PO SCH (09:11)
--- NOTE | 2016-05-23 14:10 | PRG ---
DATE OF SERVICE: 05/23/2016 SUBJECTIVE: Ms. Novak is doing well, denies any complaints, resting comfortably, tolerating her ther apy and her hemodialysis. OBJECTIVE: VITAL SIGNS: She is afebrile, heart rate is 62, respirations are 16, oxygen saturations 95%, blood pressure 157/68. CARDIOVASCULAR SYSTEM: S1, S2 plus. RESPIRATORY SYSTEM: Normal vesicular breath sounds. ABDOMEN: Soft, nontender, bowel sounds heard in all quadrants. EXTREMITIES: Without cyanosis or clubbing. IMPRESSION: 1. Compression fracture of L3. 2. Chronic kidney disease stage 5, on hemodialysis. 3. Paroxysmal atrial fibrillation. 4. Hypertension, fluctuating control. 5. Chronic diastolic congestive heart failure well compensated improving deconditioning and coronar y artery disease with angina. PLAN: 1. Continue TLSO brace at all times. 2. Heart healthy diet. 3. Hemodialysis. 4. DVT and stress ulcer prophylaxis. 5. Decubitus precautions. 6. Physical therapy. 7. Routine laboratory values.
[2016-05-23 20:17] VITALS: TEMP 99
[2016-05-24 06:15] LABS: Anion Gap 14 mmol/L (10-20); BUN (Urea Nitrogen) 30 mg/dL (9.8-20.1); Calc. Creatinine Clearance 10 mL/min (70-130); Calcium 7.9 mg/dL (7.8-10.44); Carbon Dioxide 25 mmol/L (23-31); Chloride 100 mmol/L (98-107); Estimated GFR-MDRD 10; Glucose 83 mg/dL (83-110); Potassium 3.8 mmol/L (3.5-5.1); Sodium 135 mmol/L (136-145)
[2016-05-24 06:29] LABS: Anisocytosis SLIGHT = 6-15 cells (100X) (0-5/hpf); Hemoglobin 8.5 g/dL (12.0-16.0); Hypochromia SLIGHT = 6-15 cells (100X) (0-5/hpf); Lymphocytes 19 % (21-51); MDiff Complete? YES; Mean Corpuscular HGB CONC 31.9 g/dL (32.0-36.0); Mean Corpuscular Hemoglobin 30.7 pg (27.0-31.0); Mean Corpuscular Volume 96.5 fl (81.0-99.0); Monocytes 11 % (0-10); Neutrophil 70 % (42-75); PLT Morphology Comment Appears Decreased; Platelet Count 92 thou/uL (130-400); RBC Distribution Width 16.2 % (11.5-14.5); Red Blood Cell (RBC) Count 2.77 mill/uL (4.20-5.40); White Blood Cell (WBC) Count 6.3 thou/uL (4.8-10.8)
[2016-05-24] MEDS: Calcium Carbonate + Vit D 1 TAB PO SCH (08:37)
[2016-05-24] MEDS: Docusate 100 MG CAP PO SCH (08:37)
[2016-05-24] MEDS: Carvedilol 6.25 MG TAB PO SCH (08:37)
[2016-05-24] MEDS: Multivitamin W/ Minerals 1 TAB PO SCH (08:37)
[2016-05-24] MEDS: Ezetimibe 10 MG TAB PO SCH (08:37)
[2016-05-24] MEDS: Cefuroxime Axetil 250 MG TAB PO SCH (08:37)
[2016-05-24] MEDS: PATIENT'S HOME MEDICATION PO SCH (08:43)
[2016-05-24 09:57] VITALS: BP 188/79
--- NOTE | 2016-05-24 14:41 | PRG ---
DATE OF SERVICE: 05/24/2016. SUBJECTIVE: Ms. Novak is doing well. Denies any complaints, resting comfortably, tolerating her the rapy. OBJECTIVE: VITAL SIGNS: She is afebrile, heart rate is 72, respiration is 18, oxygen saturation is 93%, blood pressure is 176/71. CARDIOVASCULAR: S1, S2 plus. RESPIRATORY: Normal vesicular breath sounds. ABDOMEN: Soft, nontender, bowel sounds heard in all quadrants. EXTREMITIES: Without cyanosis or clubbing. IMPRESSION: 1. Chronic kidney disease stage I, on hemodialysis. 2. Compression fracture of her L3. 3. Paroxysmal atrial fibrillation. 4. Hypertension. 5. Chronic diastolic congestive heart failure. 6. Nonfunctioning arteriovenous fistula. PLAN: 1. Discussed with therapy and they stated she is ready to go home whenever medically stable. 2. She apparently has appointment with Dr. Baxter for a fistulogram to assess why it is not functio ariane. 3. Continue hemodialysis. She is going to be discharged home after dialysis tomorrow. 4. Continue heart healthy diet. 5. Monitor blood pressure. 6. Low sodium, renal diet. 7. Activity as tolerated. 8. She has not needed any pain medicines. 9. Discuss with the patient in detail, inform nursing, all questions answered.
--- NOTE | 2016-05-25 14:23 | DIS ---
DATE OF ADMISSION: 05/20/2016 DATE OF DISCHARGE: 05/24/2016 PRINCIPAL DIAGNOSES: 1. L3 compression fracture. 2. Paroxysmal atrial fibrillation. 3. Hypertension. 4. Chronic diastolic congestive heart failure. 5. Nonfunctioning AV fistula. 6. Chronic kidney disease, stage 5, on hemodialysis and improving deconditioning. COMPLICATIONS: None. ADVERSE REACTIONS: None. PROCEDURES: None. CONSULTATIONS: None. HOSPITAL COURSE: The patient was admitted on 05/20/2016 after suffering a fall and was noticed to h ave worsening of her lumbar spine L3 compression fracture. She was recommended to wear her TLSO bra ce at all times and was sent here for therapy. She has been transferred to dialysis 3 times a week. She has been doing well with her walker. She has been ambulating more than 250 feet and physical therapy deemed her stable for discharge. Her blood pressures have been fluctuating, but for the mos t part have been under control. She has been tolerating her diet and no other issues. PHYSICAL EXAMINATION: VITAL SIGNS: On the day of discharge, she is afebrile, heart rate is 72, respirations 18, oxygen sa turation 93%, and blood pressure was 176/71. CARDIOVASCULAR: S1, S2 plus. RESPIRATORY: Normal vesicular breath sounds. ABDOMEN: Soft, nontender, bowel sounds heard in all quadrants. EXTREMITIES: Without cyanosis, clubbing. Peripheral pulses are palpable. CENTRAL NERVOUS SYSTEM: Improving deconditioning. DISCHARGE MEDICATIONS: Same as admission, which include Ativan 0.25 mg p.o. daily p.r.n., multivita min 1 tablet daily, carvedilol 12.5 b.i.d., omega 3 fatty acids 300 mg daily, Zetia 10 mg daily, Eco marleni 81 mg daily, amiodarone 200 mg daily, Nephro-Cade 1 tablet daily, Colace 100 mg b.i.d. Her joaquina n medicines were discontinued and she has not been taking any since she has been in the hospital. S he is to take Tylenol 500 mg q.6 p.r.n. Her muscle relaxant was also discontinued. White count was 6.3, H\T\H is 8.5 and 26.7, sodium 135, potassium 3.8, BUN and creatinine is 30 and 4.09. She is to continue a heart healthy, renal diet. Follow with Dr. Baxter who has scheduled her for a possible fistulogram and dialysis 3 times a week. She is to follow up in my office in 2 week s. She is to call us with any questions or concerns. Case management discussing with family to see if they need any home health or any DME. Total time spent on this discharge 35 minutes.
== END 2016-05-24 17:05 | disposition home or self-care (01) | DRG 560 ==
LOC: UNDOADMIN 19:30 → NAV ACUTE 19:30
PROVIDERS: ADMIT Internal Medicine; ATTEND Internal Medicine
DX: M48.56XD Collapsed vertebra, not elsewhere classified, lumbar region, subsequent encounter for fracture with routine healing (principal); I13.2 Hypertensive heart and chronic kidney disease with heart failure and with stage 5 chronic kidney disease, or end stage renal disease; N18.5 Chronic kidney disease, stage 5; T82.898A Other specified complication of vascular prosthetic devices, implants and grafts, initial encounter; I50.32 Chronic diastolic (congestive) heart failure; I48.0 Paroxysmal atrial fibrillation; Z99.2 Dependence on renal dialysis; E78.5 Hyperlipidemia, unspecified; I25.2 Old myocardial infarction; Z95.0 Presence of cardiac pacemaker; Z88.2 Allergy status to sulfonamides; Z87.891 Personal history of nicotine dependence; Z95.5 Presence of coronary angioplasty implant and graft; Z79.82 Long term (current) use of aspirin; Y83.2 Surgical operation with anastomosis, bypass or graft as the cause of abnormal reaction of the patient, or of later complication, without mention of misadventure at the time of the procedure; I25.119 Atherosclerotic heart disease of native coronary artery with unspecified angina pectoris
CPT/HCPCS: 36415; 80048; 85025

== ENCOUNTER 2016-08-25 08:55 | Outpatient (CLI) | payer MEDICARE ==
[2016-08-25 13:05] LABS: Cardiac Risk 2.8 (Less than 4.5)
== END 2016-08-25 08:56 | disposition home or self-care (01) ==
LOC: NAVSJIPCSP 08:55
PROVIDERS: ATTEND Internal Medicine
DX: E78.5 Hyperlipidemia, unspecified (principal); Z79.899 Other long term (current) drug therapy
CPT/HCPCS: 36415; 80061

== ENCOUNTER 2016-10-18 15:35 | Outpatient (CLI) | payer MEDICARE ==
[2016-10-18 15:43] LABS: #Basophils 0.1 thou/uL (0.0-0.2); #Eosinphils 0.1 thou/uL (0.0-0.7); #Monocytes 0.8 thou/uL (0.11-0.59); #Neutrophils 3.7 thou/uL (1.40-6.50); %Basophils 1.6 % (0.0-1.0); %Eosinophils 1.7 % (0.0-10.0); %Lymphocytes 17.9 % (21.0-51.0); %Monocytes 14.1 % (0.0-10.0); %Neutrophils 64.7 % (42.0-75.0); Hemoglobin 10.6 g/dL (12.0-16.0); Mean Corpuscular HGB CONC 31.3 g/dL (32.0-36.0); Mean Platelet Volume 6.8 fL (7.4-10.4); Platelet Count 137 thou/uL (130-400); RBC Distribution Width 15.3 % (11.5-14.5); Red Blood Cell (RBC) Count 3.31 mill/uL (4.20-5.40); White Blood Cell (WBC) Count 5.7 thou/uL (4.8-10.8)
[2016-10-18 16:05] LABS: ALT (SGPT) 51 U/L (8-55); AST (SGOT) 108 U/L (5-34); Albumin 2.8 g/dL (3.4-4.8); Alkaline Phosphatase 109 U/L (40-150); Anion Gap 16 mmol/L (10-20); BUN (Urea Nitrogen) 41 mg/dL (9.8-20.1); Bilirubin, Total 1.3 mg/dL (0.2-1.2); Calc. Creatinine Clearance 0 mL/min (70-130); Calcium 7.9 mg/dL (7.8-10.44); Carbon Dioxide 26 mmol/L (23-31); Chloride 95 mmol/L (98-107); Estimated GFR-MDRD 9; Globulin 3.1 g/dL (2.4-3.5); Glucose 73 mg/dL (83-110); Potassium 4.2 mmol/L (3.5-5.1); Protein, Total 5.9 g/dL (6.0-8.3); Sodium 133 mmol/L (136-145)
== END 2016-10-18 15:36 | disposition home or self-care (01) ==
LOC: NAVSJIPCSP 15:35
PROVIDERS: ATTEND Internal Medicine Cardiovascular Disease
DX: I25.119 Atherosclerotic heart disease of native coronary artery with unspecified angina pectoris (principal); I48.0 Paroxysmal atrial fibrillation
CPT/HCPCS: 80053; 84443; 85025

== ENCOUNTER 2016-11-06 10:43 | Emergency (ER) | payer MEDICARE | END 2016-11-06 11:42 | disposition home or self-care (01) | LOC: NAV ERS 10:43 | DX: S39.012A Strain of muscle, fascia and tendon of lower back, initial encounter (principal); E78.5 Hyperlipidemia, unspecified; I13.2 Hypertensive heart and chronic kidney disease with heart failure and with stage 5 chronic kidney disease, or end stage renal disease; I50.9 Heart failure, unspecified; I48.91 Unspecified atrial fibrillation; N18.6 End stage renal disease; I25.2 Old myocardial infarction; Z87.891 Personal history of nicotine dependence; Z79.82 Long term (current) use of aspirin; Z79.899 Other long term (current) drug therapy; Z99.2 Dependence on renal dialysis; X50.1XXA Overexertion from prolonged static or awkward postures, initial encounter; Y93.G3 Activity, cooking and baking | CPT/HCPCS: 99283 ==

== ENCOUNTER 2016-11-08 16:03 | Outpatient (CLI) | payer MEDICARE ==
--- NOTE | 2016-11-08 18:37 | RAD ---
THORACIC SPINE THREE VIEWS: 11/08/16 HISTORY: Back pain. COMPARISON: 07/19/16. FINDINGS: There are twelve thoracic type vertebrae. Pedicles are intact. Leftward convexed rotatory scoliotic curvature is apparent on the frontal view. Compression of the T12 superior end plate has developed since the prior study with loss of height by approximately 40%. Other vertebral body heights are maintained. There is osteophytosis throughout t he vertebral bodies and facets. IMPRESSION: 1. T12 superior end plate compression fracture has developed since the 07/19/16 lumbar spine radi ograph. 2. Osteoporosis. POS: [facility]
== END 2016-11-08 16:04 | disposition home or self-care (01) ==
LOC: NAV RAD 16:03
PROVIDERS: ATTEND Internal Medicine
DX: M54.9 Dorsalgia, unspecified (principal); S22.089D Unspecified fracture of T11-T12 vertebra, subsequent encounter for fracture with routine healing; M81.0 Age-related osteoporosis without current pathological fracture
CPT/HCPCS: 72072

== ENCOUNTER 2016-12-25 18:04 | Emergency (ER) | payer MEDICARE ==
[2016-12-25 18:59] LABS: #Basophils 0.1 thou/uL (0.0-0.2); #Eosinphils 0.2 thou/uL (0.0-0.7); #Lymphocytes 1.8 thou/uL (1.20-3.40); #Monocytes 0.6 thou/uL (0.11-0.59); #Neutrophils 4.1 thou/uL (1.40-6.50); %Basophils 1.2 % (0.0-1.0); %Eosinophils 2.9 % (0.0-10.0); %Lymphocytes 26.1 % (21.0-51.0); %Monocytes 8.4 % (0.0-10.0); %Neutrophils 61.3 % (42.0-75.0); Differential Comment SCANNED; Hemoglobin 12.1 g/dL (12.0-16.0); Mean Corpuscular HGB CONC 31.1 g/dL (32.0-36.0); Mean Corpuscular Hemoglobin 33.1 pg (27.0-31.0); Mean Platelet Volume 9.9 fL (7.4-10.4); Platelet Count 92 thou/uL (130-400); Red Blood Cell (RBC) Count 3.66 mill/uL (4.20-5.40); White Blood Cell (WBC) Count 6.8 thou/uL (4.8-10.8)
[2016-12-25 19:08] LABS: ALT (SGPT) 28 U/L (8-55); AST (SGOT) 69 U/L (5-34); Albumin 2.6 g/dL (3.4-4.8); Alkaline Phosphatase 136 U/L (40-150); Anion Gap 14 mmol/L (10-20); BUN (Urea Nitrogen) 39 mg/dL (9.8-20.1); Calc. Creatinine Clearance 0 mL/min (70-130); Calcium 8.4 mg/dL (7.8-10.44); Carbon Dioxide 32 mmol/L (23-31); Chloride 92 mmol/L (98-107); Estimated GFR-MDRD 8; Globulin 3.6 g/dL (2.4-3.5); Glucose 101 mg/dL (83-110); Potassium 4.8 mmol/L (3.5-5.1); Protein, Total 6.2 g/dL (6.0-8.3); Sodium 133 mmol/L (136-145)
[2016-12-25 19:10] LABS: CKMB 0.9 ng/mL (0-6.6); Troponin I 0.021 ng/mL (< 0.028)
--- NOTE | 2016-12-25 20:35 | CT ---
ABDOMEN CT WITHOUT CONTRAST PELVIC CT WITHOUT CONTRAST: History: Intermittent abdomen pain for the past hour. Two episodes of emesis. Comparison: None. Technique: Abdomen and pelvic CT are performed without contrast utilizing renal stone protocol. Richard nal reformatted images are submitted for interpretation. FINDINGS: ABDOMEN CT: Heart is enlarged. Small amount of pericardial fluid. There is elongation and tortuosity of the desc ending thoracic aorta. There is aneurysmal dilatation of the infrarenal abdominal aorta, measuring 2 .6 x 3.3 cm. There is no periaortic fat stranding. Note is made of an IVC filter. There are small bilateral effusions with adjacent lung parenchymal changes suggesting areas of atele ctasis. Right lower lobe pneumonia cannot be excluded. Limited evaluation of the solid organs due to lack of IV contrast. Grossly, no solid organ abnormali ty. There appears to be fluid in the gallbladder fossa. Evaluation is incomplete. No CT evidence of chol elithiasis. Symmetric attenuation of the psoas muscles. There are nonobstructing calcifications in the left and right renal pelvis. These calcifications shannon ear to be vascular in origin. Bilaterally, no hydronephrosis or perinephric fat stranding. Bilateral ureters have an overall normal caliber. No hydroureter, periureteral fat stranding or ureterolithia sis. No mesenteric mass, lymphadenopathy, free air or free fluid. Limited evaluation of the alimentary canal due to lack of oral contrast. Grossly, no evidence of bow el obstruction. Scattered fecal material in a nondistended, nondilated colon. Colon diverticulum. No evidence of diverticulitis. Mucosal prominence of the descending colon likely due to inadequate dis tention. There is asymmetric hypoattenuation along the lateral aspect of the left abdomen at the level of the lateral abdominal rectus muscle. Correlate for possible hematoma, measuring 5.3 x 3.6 cm. There is mild enduration of the overlying subcutaneous fat. Correlate for recent trauma. Mild edema of the subcutaneous fat is noted. Correlate for anasarca. There is diffuse bone demineralization. There appears to be vertebral plana involving the L1, L3 nanci tebral bodies along with moderate compression fracture at T12. There is some paraspinal fluid at the T12 and L1 level, suggesting possible acute compression fracture. Clinical correlation is essential . Correlation made with a lumbar spine CT from 05-10-16 does not demonstrate these fracture. There is also evidence of progression of the compression fracture at L3. PELVIC CT: Uterus and adnexal structures are unremarkable. Urinary bladder is unremarkable. IMPRESSION: 1. Subcutaneous edema. 2. Left lateral abdominal hematoma is favored, given what appear to be acute compression fractures a t T12, L1 and progression of compression fracture at L3. 3. No evidence of obstructive uropathy. POS: [facility]
== END 2016-12-25 19:57 | disposition home or self-care (01) ==
LOC: NAV ERS 18:04
DX: S32.019A Unspecified fracture of first lumbar vertebra, initial encounter for closed fracture (principal); S32.039A Unspecified fracture of third lumbar vertebra, initial encounter for closed fracture; S30.1XXA Contusion of abdominal wall, initial encounter; S00.33XA Contusion of nose, initial encounter; D69.6 Thrombocytopenia, unspecified; I13.2 Hypertensive heart and chronic kidney disease with heart failure and with stage 5 chronic kidney disease, or end stage renal disease; I50.9 Heart failure, unspecified; I25.2 Old myocardial infarction; E78.5 Hyperlipidemia, unspecified; Z99.2 Dependence on renal dialysis; Z79.899 Other long term (current) drug therapy; Z79.82 Long term (current) use of aspirin; X58.XXXA Exposure to other specified factors, initial encounter
CPT/HCPCS: 74176; 80053; 82553; 84484; 85025; 93005

== ENCOUNTER 2017-01-31 03:16 | Emergency (ER) | payer MEDICARE ==
[2017-01-31 04:34] LABS: CKMB 1.2 ng/mL (0-6.6); Troponin I 0.011 ng/mL (< 0.028)
[2017-01-31 04:40] LABS: #Basophils 0.1 thou/uL (0.0-0.2); #Eosinphils 0.1 thou/uL (0.0-0.7); #Lymphocytes 1.7 thou/uL (1.20-3.40); #Monocytes 0.6 thou/uL (0.11-0.59); #Neutrophils 2.6 thou/uL (1.40-6.50); %Basophils 1.2 % (0.0-1.0); %Eosinophils 2.5 % (0.0-10.0); %Lymphocytes 33.7 % (21.0-51.0); %Monocytes 11.4 % (0.0-10.0); %Neutrophils 51.2 % (42.0-75.0); Hemoglobin 11.2 g/dL (12.0-16.0); Hypochromia SLIGHT = 6-15 cells (100X) (0-5/hpf); MDiff Complete? YES; Macrocytosis SLIGHT = 6-15 cells (100X) (0-5/hpf); Mean Corpuscular HGB CONC 33.2 g/dL (32.0-36.0); Mean Corpuscular Hemoglobin 34.4 pg (27.0-31.0); Mean Platelet Volume 9.3 fL (7.4-10.4); PLT Morphology Comment Appears Decreased; Platelet Count 72 thou/uL (130-400); RBC Distribution Width 15.6 % (11.5-14.5); Red Blood Cell (RBC) Count 3.26 mill/uL (4.20-5.40); Target Cells SLIGHT = 2-5 cells (100X) (0-1/hpf)
[2017-01-31 04:43] LABS: Bilirubin Negative (Negative); Blood, Urine Large (Negative); Clarity Clear (Clear); Glucose, Urine (Dipstick) Negative (Negative); Leukocyte Negative (Negative); Nitrite Negative (Negative); Protein, Urine (Dipstick) > or equal to 300 mg/dL (Neg-Trace); Urobilinogen 0.2 mg/dL (0.2-1.0); pH, Urine 8.5 (5.0-9.0)
[2017-01-31 04:50] LABS: Anion Gap 13 mmol/L (10-20); BUN (Urea Nitrogen) 25 mg/dL (9.8-20.1); Calc. Creatinine Clearance 0 mL/min (70-130); Calcium 8.5 mg/dL (7.8-10.44); Carbon Dioxide 29 mmol/L (23-31); Chloride 96 mmol/L (98-107); Estimated GFR-MDRD 14; Glucose 86 mg/dL (83-110); Potassium 4.9 mmol/L (3.5-5.1); Sodium 133 mmol/L (136-145)
[2017-01-31 04:51] LABS: ALT (SGPT) 22 U/L (8-55); AST (SGOT) 76 U/L (5-34); Albumin 2.6 g/dL (3.4-4.8); Alkaline Phosphatase 122 U/L (40-150); Bilirubin, Total 0.8 mg/dL (0.2-1.2); CK (CPK) 26 U/L (29-168); Globulin 3.7 g/dL (2.4-3.5); Lipase 23 U/L (8-78); Protein, Total 6.3 g/dL (5.8-8.1)
[2017-01-31 04:53] LABS: RBC/HPF GREATER THAN 50-TNTC HPF (0-3); Squamous Epithelial 0-3 HPF (0-3); WBC/HPF 0-3 HPF (0-3)
[2017-01-31 04:54] LABS: Bacteria/HPF None Seen HPF (None Seen)
--- NOTE | 2017-01-31 07:28 | RAD ---
CHEST 1 VIEW: Date: 01/31/17 HISTORY: Chest pain. COMPARISON: 12/12/16. FINDINGS: Portable upright chest radiograph demonstrates cardiomegaly and pulmonary vascular prominence. Inters titial opacities are noted. There is thickening of the minor fissure. Stable left-sided transvenous p acemaker. No pneumothorax. IMPRESSION: Congestive heart failure. POS: [facility]
== END 2017-01-31 06:02 | disposition short-term general hospital (02) ==
LOC: NAV ERS 03:16
DX: I13.2 Hypertensive heart and chronic kidney disease with heart failure and with stage 5 chronic kidney disease, or end stage renal disease (principal); N18.6 End stage renal disease; I50.9 Heart failure, unspecified; I25.2 Old myocardial infarction; R10.32 Left lower quadrant pain; R10.13 Epigastric pain; R10.11 Right upper quadrant pain; R10.12 Left upper quadrant pain; R10.31 Right lower quadrant pain; I48.91 Unspecified atrial fibrillation; E78.5 Hyperlipidemia, unspecified; Z99.2 Dependence on renal dialysis; Z87.891 Personal history of nicotine dependence; Z79.82 Long term (current) use of aspirin; Z79.899 Other long term (current) drug therapy
CPT/HCPCS: 51701; 71010; 80053; 81003; 81015; 82553; 83690; 83880; 84484; 85025; 93005; A4353